=== PATIENT | female | born 1985 | race Caucasian/White ===

== ENCOUNTER 2018-07-21 13:20 | Emergency (ER) | payer MEDICAID ==
[2018-07-21 13:28] VITALS: BMI 22.1
[2018-07-21] MEDS ORDERED: DiphenhydrAMINE 12.5 mg/5 ml LIQ UD (5 ml) PO STA (13:36)
--- NOTE | 2018-07-21 13:47 | ED PDOC ---
Arrival/HPI - General Chief Complaint: Allergic Reaction Time Seen by Provider: 07/21/18 13:25 Historian: Patient - History of Present Illness Narrative History of Present Illness (Text): 07/21/18 13:42 33yo female with no pmhx who present with complaint of left upper eyelid swelling, face and lips swelling since yesterday. States he took Benadryl last night and at 0400am this morning with some improvement. states she have had this symptoms intermittently for a while now and usually takes Benadryl. She denies tongue swelling, SOB, chest pain, any inciting factors, any other complaint. Past Medical History - Provider Review Nursing Documentation Reviewed: Yes - Past History Past History: No Previous - Tetanus Immunization Tetanus Immunization: Unknown - Past Medical History Past Medical History: No Previous - Psychiatric Hx Depression: No Hx Emotional Abuse: No Hx Physical Abuse: No Hx Substance Use: No - Past Surgical History Past Surgical History: Non-Contributing - Surgical History Hx Section: Yes - Suicidal Assessment Feels Threatened In Home Enviroment: No Family/Social History - Physician Review Nursing Documentation Reviewed: Yes Family/Social History: Unknown Family HX Smoking Status: Never Smoked Hx Alcohol Use: No Hx Substance Use: No Hx Substance Use Treatment: No Allergies/Home Meds Allergies/Adverse Reactions: Allergies aspirin Allergy (Verified 07/21/18 13:27) ANAPHYLAXIS Review of Systems - Physician Review All systems were reviewed & negative as marked: Yes - Review of Systems Constitutional: Normal Eyes: Normal ENT: Normal Respiratory: Normal Cardiovascular: Normal Gastrointestinal: Normal Genitourinary Female: Normal Musculoskeletal: Normal Skin: Other (Left upper eyelid/facial/lip swelling .) Neurological: Normal Endocrine: Normal Hemo/Lymphatic: Normal Psychiatric: Normal Physical Exam Vital Signs Reviewed: Yes Temperature: Afebrile Blood Pressure: Normal Pulse: Regular Respiratory Rate: Normal Appearance: Positive for: Well-Appearing, Non-Toxic, Comfortable Pain Distress: None Mental Status: Positive for: Alert and Oriented X 3 - Systems Exam Head: Present: Atraumatic, Normocephalic Pupils: Present: PERRL Extroacular Muscles: Present: EOMI, Other (Left upper eyelid mild swelling noted) Conjunctiva: Present: Normal Mouth: Present: Moist Mucous Membranes Neck: Present: Normal Range of Motion Respiratory/Chest: Present: Clear to Auscultation, Good Air Exchange. No: Respiratory Distress, Accessory Muscle Use Cardiovascular: Present: Regular Rate and Rhythm, Normal S1, S2. No: Murmurs Abdomen: No: Tenderness, Distention, Peritoneal Signs Back: Present: Normal Inspection Upper Extremity: Present: Normal Inspection. No: Cyanosis, Edema Lower Extremity: Present: Normal Inspection. No: Edema Neurological: Present: GCS=15, CN II-XII Intact, Speech Normal Skin: Present: Warm, Dry, Normal Color. No: Rashes Psychiatric: Present: Alert, Oriented x 3, Normal Insight, Normal Concentration Medical Decision Making ED Course and Treatment: 07/21/18 19:59 PT presnted for stated history. She was not in any distress. controlling her secretions. No stridor. No drooling notes. Lung was CTA b/l. Pt was treated with benadryl and prednisone for allergic reaction She reproted history of similar symptoms in the past and was strongly advised to f/u with a Utilization Management Manager/chlorobutadiene scrubber operator xyzal and prednisone rx given - Medication Orders Current Medication Orders: Discontinued Medications Diphenhydramine HCl (Benadryl) 25 mg PO STAT STA Stop: 07/21/18 13:37 Prednisone (Prednisone Tab) 40 mg PO STAT STA Stop: 07/21/18 13:37 Disposition/Present on Arrival - Present on Arrival Any Indicators Present on Arrival: No History of DVT/PE: No History of Uncontrolled Diabetes: No Urinary Catheter: No History of Decub. Ulcer: No History Surgical Site Infection Following: None - Disposition Have Diagnosis and Disposition been Completed?: Yes Diagnosis: Allergic reaction Disposition: HOME/ ROUTINE Disposition Time: 13:55 Patient Plan: Discharge Condition: STABLE Discharge Instructions (ExitCare): Gregorio Additional Instructions: Take medication as directed Follow up with your Doctor/Surface Water Technician Return to ED for any new or worsening symptoms Prescriptions: Levocetirizine Dihydrochloride [Xyzal] 5 mg PO DAILY #10 tablet predniSONE [Prednisone] 20 mg PO DAILY #3 tab Referrals: Yamini Cohen MD [Staff Provider] - Follow up with primary Forms: [employer] ([place]ic)
[2018-07-21 14:13] VITALS: BP 118/72; PULSE 80; RESP 17; TEMP 98.3; O2SAT 99
== END 2018-07-21 14:15 | disposition home or self-care (01) ==
LOC: ED 13:20
DX: T78.49XA Other allergy, initial encounter (principal); X58.XXXA Exposure to other specified factors, initial encounter

== ENCOUNTER 2019-01-16 16:36 | Emergency (ER) | payer MEDICAID, OTHER ==
[2019-01-16 16:56] VITALS: BMI 23.3
[2019-01-16 17:00] VITALS: RESP 18; O2SAT 99
--- NOTE | 2019-01-16 17:11 | ED PDOC ---
Arrival/HPI - General Chief Complaint: ENT Problem Time Seen by Provider: 01/16/19 16:40 Historian: Patient - History of Present Illness Narrative History of Present Illness (Text): 01/16/19 17:08 33 y/o female, no significant pmh, allergic to aspirin and cefuroxime, c/o throat pain/cough/fever/bodyache x 4 days with no recent traveling. Aching pain, associated with cough/fever/chills, no recent traveling, no night sweat, no abdominal or pelvic pain, no dizziness, no change in vision, no numbness or tingling, no diarrhea, no other medical or psychological complaints. Past Medical History - Provider Review Nursing Documentation Reviewed: Yes - Past History Past History: No Previous - Infectious Disease Hx of Infectious Diseases: None - Tetanus Immunization Tetanus Immunization: Unknown - Past Medical History Past Medical History: No Previous - Psychiatric Hx Depression: No Hx Emotional Abuse: No Hx Physical Abuse: No Hx Substance Use: No - Past Surgical History Past Surgical History: Non-Contributing - Surgical History Hx Section: Yes (x1) - Anesthesia Hx Anesthesia: No - Suicidal Assessment Feels Threatened In Home Enviroment: No Family/Social History - Physician Review Nursing Documentation Reviewed: Yes Family/Social History: Unknown Family HX Smoking Status: Never Smoked Hx Alcohol Use: No Hx Substance Use: No Hx Substance Use Treatment: No Allergies/Home Meds Allergies/Adverse Reactions: Allergies aspirin Allergy (Verified 01/16/19 16:56) ANAPHYLAXIS cefuroxime [From Ceftin] Allergy (Verified 01/16/19 16:56) RASH Review of Systems - Review of Systems Constitutional: Fevers. absent: Fatigue Eyes: absent: Vision Changes ENT: Sore Throat. absent: Hearing Changes Respiratory: Cough. absent: SOB, Sputum, Wheezing Cardiovascular: absent: Chest Pain Gastrointestinal: absent: Abdominal Pain, Nausea, Vomiting Musculoskeletal: Myalgias. absent: Arthralgias, Back Pain Skin: absent: Rash, Pruritis Neurological: absent: Headache, Dizziness Psychiatric: absent: Anxiety, Depression, Suicidal Ideation Physical Exam Vital Signs Reviewed: Yes Vital Signs Temp Pulse Resp BP Pulse Ox 01/16/19 16:59 98.2 F 86 18 128/80 99 Temperature: Afebrile Blood Pressure: Normal Pulse: Regular Respiratory Rate: Normal Appearance: Positive for: Well-Appearing, Non-Toxic, Comfortable Pain Distress: Mild Mental Status: Positive for: Alert and Oriented X 3 - Systems Exam Head: Present: Atraumatic, Normocephalic Pupils: Present: PERRL Extroacular Muscles: Present: EOMI Conjunctiva: Present: Normal Ears: Present: NORMAL TM, Normal Canal. No: Erythema Mouth: Present: Moist Mucous Membranes Pharnyx: Present: ERYTHEMA. No: EXUDATE, TONSILS ENLARGED, Peritonsilar Swelling, Uvular Deviation, Muffled/Hoarse Voice, Strider, Soft Palate/Uvular Edema Nose (External): Present: Atraumatic. No: Abrasion, Contusion, Laceration Nose (Internal): Present: Normal Inspection, No Active Bleeding. No: Rhinorrhea, Septal Hematoma Neck: Present: Normal Range of Motion, Trachea Midline. No: Meningeal Signs, MIDLINE TENDERNESS, Paraspinal Tenderness, Lymphadenopathy Respiratory/Chest: Present: Clear to Auscultation, Good Air Exchange. No: Respiratory Distress, Accessory Muscle Use, Wheezes, Decreased Breath Sounds, Rales, Retracting, Rhonchi, Tachypneic, Tender to Palpation Cardiovascular: Present: Regular Rate and Rhythm, Normal S1, S2. No: Murmurs Abdomen: No: Tenderness, Distention, Peritoneal Signs Back: Present: Normal Inspection. No: CVA Tenderness, Midline Tenderness, Paraspinal Tenderness Upper Extremity: Present: Normal Inspection. No: Cyanosis, Edema Lower Extremity: Present: Normal Inspection. No: Edema Neurological: Present: GCS=15, CN II-XII Intact, Speech Normal, Motor Func Grossly Intact, Normal Cerebellar Funct, Gait Normal, Memory Normal Skin: Present: Warm, Dry, Normal Color. No: Rashes Psychiatric: Present: Alert, Oriented x 3, Normal Insight, Normal Concentration Medical Decision Making ED Course and Treatment: 01/16/19 17:10 -labs -Urine hcg 01/16/19 17:58 -Urine hcg is negative -Rapid strep is negative -Rapid flu is negative, -Pt. feels well, eating and drinking well, concerning for rapid strept, will give zithromax. -Discharge home with zithromax, bromfed dm, tylenol, salt water gargling, soft food diet, stay hydrated, follow up with your own pmd and ENT within 2 days, return to the ER for any new or worsening signs or symptoms. - PA / TRAIN CLERK / Resident Statement MD/DO has reviewed & agrees with the documentation as recorded. Disposition/Present on Arrival - Present on Arrival Any Indicators Present on Arrival: No History of DVT/PE: No History of Uncontrolled Diabetes: No Urinary Catheter: No History of Decub. Ulcer: No History Surgical Site Infection Following: None - Disposition Have Diagnosis and Disposition been Completed?: Yes Diagnosis: URI (upper respiratory infection), Pharyngitis Disposition: HOME/ ROUTINE Disposition Time: 18:00 Patient Plan: Discharge Condition: GOOD Additional Instructions: -Discharge home with zithromax, bromfed dm, tylenol, salt water gargling, soft food diet, stay hydrated, follow up with your own pmd and ENT within 2 days, return to the ER for any new or worsening signs or symptoms. Prescriptions: Acetaminophen [Tylenol] 2 cap PO QID PRN #30 capsule PRN Reason: Other Azithromycin [Zithromax] 250 mg PO DAILY #6 tab Brompheniramine/Pseudoephed/Dm [Bromfed Dm Cough 118 ml] 10 ml PO QID PRN #250 ml PRN Reason: Other Referrals: Destiney [place] MD [Primary Care Provider] - Follow up with primary Marito Gambino DO [Staff Provider] - Follow up with primary Forms: [employer] ([place]an), WORK NOTE
[2019-01-16 17:35] LABS: INFLUENZA A B NEGATIVE FOR FLU A/B (NEGATIVE)
[2019-01-16 18:22] VITALS: PULSE 79; TEMP 98
[2019-01-16 18:25] VITALS: BP 109/74
== END 2019-01-16 18:27 | disposition home or self-care (01) ==
LOC: ED 16:36
DX: J02.9 Acute pharyngitis, unspecified (principal); J06.9 Acute upper respiratory infection, unspecified; Z88.6 Allergy status to analgesic agent